=== PATIENT | male | born 2000 | race Caucasian/White ===

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

== ENCOUNTER 2021-02-20 15:09 | Outpatient (CLI) | payer OTHER, SELFPAY ==
--- NOTE | 2021-02-20 15:15 | MR_ITS ---
WS: [id number] MRI LEFT KNEE HISTORY: S82.153A - Displaced fracture of unspecified tibial tubercle... COMPARISON: Radiographs 02/04/2021 Anterior cruciate ligament: Intact. There is a very small amount of fluid in the proximal ligament bu t no full-thickness or high-grade tear. Posterior cruciate ligament: Intact. Medial collateral ligament: Intact. Posterior lateral corner structures: Intact. Medial menisci: Intact. Normal signal, size and shape. Lateral meniscus: Intact. Normal signal, size and shape. Extensor mechanism: Distal quadriceps tendon and patellar tendons are intact. Fluid and soft tissue: Large suprapatellar joint effusion. There is additional edema extending into t he infrapatellar fat pad. No Gomez's cyst. Osseous and articular structures: Patellofemoral compartment: Increased T2 signal in the inferior medial patella. There is a lucency on the proton density sequences consistent with a fracture. Fracture is not visualized by radiograph. N o displacement. There is loss of the normal cortex over the inferior surface of the patella. There is also involvement of the significant portion of the cartilage over the medial patellar facet at the s ite of the trauma. Mild lateral subluxation of patella. Increased signal extends through the medial p atellar retinaculum at the attachment to the patella consistent with a tear. Medial compartment: Normal. Lateral compartment: Moderate amount of marrow edema in the lateral femoral condyle. There is also os teochondral defect in the cartilage measuring 6 mm along the joint surface of the femoral condyle. Co rtical and cartilage injury along the joint surface and medial condyle. Trabecular and cortical injur y. Within the fluid adjacent to the femoral condyle is a 9 mm defect which may be a loose body associ ated with the cartilage and cortical injury of the femoral condyle. MR/MR knee LT wo con* [id number] IMPRESSION: 1. Constellation of findings are most likely due to transient dislocation of t he patella laterally. 2. Marrow edema with nondisplaced fracture in the inferior medial patella with a tear of the medial patellar retinaculum. 3. Marrow edema lateral femoral condyle with osteochondral injury and cortical injury. Possible adjacent loose body measuring 9 mm. 4. Large suprapatellar joint effusion. 5. Additional significant acute osteochondral injury involving a large portion of the medial patella.
== END 2021-02-20 15:10 | disposition home or self-care (01) ==
LOC: RADSHAW 15:11
PROVIDERS: Family Provider Nurse Practitioner; PCP Nurse Practitioner; Visit Provider Orthopaedic Surgery
DX: S82.153A Displaced fracture of unspecified tibial tuberosity, initial encounter for closed fracture (principal); R60.9 Edema, unspecified; M25.462 Effusion, left knee; X58.XXXA Exposure to other specified factors, initial encounter
CPT/HCPCS: 73721

== ENCOUNTER → 2021-03-16 14:03 | Outpatient (BNVA) | payer OTHER, SELFPAY | PROVIDERS: Family Provider Nurse Practitioner; PCP Nurse Practitioner; Visit Provider Orthopaedic Surgery | DX: M25.562 Pain in left knee (principal) | CPT/HCPCS: 73560; 73565 ==

== ENCOUNTER → 2021-04-27 14:21 | Outpatient (BNVA) | payer OTHER, SELFPAY | PROVIDERS: Family Provider Nurse Practitioner; PCP Nurse Practitioner; Visit Provider Orthopaedic Surgery | DX: S82.152D Displaced fracture of left tibial tuberosity, subsequent encounter for closed fracture with routine healing (principal); X58.XXXD Exposure to other specified factors, subsequent encounter | CPT/HCPCS: 73560; 73565 ==

== ENCOUNTER → 2021-09-27 09:28 | Outpatient (BNVA) | payer OTHER, SELFPAY | PROVIDERS: Family Provider Nurse Practitioner; PCP Nurse Practitioner; Visit Provider Nurse Practitioner Family | DX: S62.002A Unspecified fracture of navicular [scaphoid] bone of left wrist, initial encounter for closed fracture (principal); S62.001A Unspecified fracture of navicular [scaphoid] bone of right wrist, initial encounter for closed fracture; W10.1XXA Fall (on)(from) sidewalk curb, initial encounter | CPT/HCPCS: 73110 ==

== ENCOUNTER 2021-09-27 11:40 | Emergency (ER) | payer OTHER, SELFPAY ==
[2021-09-27 12:13] VITALS: BP 137/84; PULSE 67; RESP 18; O2SAT 98; BMI 19.8
--- NOTE | 2021-09-27 12:23 | ED_ITS ---
HPI - Extremity Problem General: Chief complaint: Extremity Injury, Upper Stated complaint: BILATERAL WRIST INJURY:HAS XRAY SHOWING BROKE Time Seen by Provider: 09/27/21 12:19 History of Present Illness: HPI Narrative: Patient is a 21-year-old male comes to the ED with bilateral wrist pain. Patient says yesterday he jumped up onto a railing and then fell backwards approximately 3 feet in the air and landed on his outstretched arms and hands. He is now having pain in both wrists that he rates currently a 6 out of 10. X-rays were done in [place] today and he had bilateral wrist fractures. Denies any head trauma or loss of consciousness or headache. Associated symptoms: Deny chest pain, fever(s) or rash Review of Systems Const: Denies: fever(s), chills or fatigue Eyes: Denies: change in vision or eye discomfort ENMT: Denies: throat pain, odynophagia, nasal discharge or nasal congestion Card: Denies: chest pain, palpitations, edema, swelling of feet/ankles, dyspnea on exertion or orthopnea Resp: Denies: dyspnea, productive cough or non-productive cough GI: Denies: abdominal pain, nausea, vomiting, diarrhea, constipation or hematochezia : Denies: flank pain, difficulty urinating, dysuria or hematuria Musc: Reports: extremity pain (Bilateral wrist pain); Denies: neck pain, back pain or extremity swelling Skin/Breast: Denies: rash or new lesions Neuro: Denies: headache(s), numbness in extremities or weakness in extremities [facility] ED PFSH: Medical History 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 Surgical History History of adenoidectomy Family History Other Diabetes Hypertension Denies family history of Dementia Cancer Stroke Social History Smoking and tobacco status: never smoked Second hand smoke exposure: No Smoking risk assessment/counseling performed?: No Alcohol intake: never Desire information about alcohol rehabilitation?: No Counseling given: No Desire information about substance/drug rehabilitation?: No Counseling given: No Adopted: No Caregiver/support person: No Lives independently: No Household members: family Housing: House Marital status: Single service: No Current occupational status: employed and student Current gender identity: Male Physical Exam Const: COMMON NORMALS: no acute distress, patient oriented x3, healthy appearing and alert GENERAL APPEARANCE: cooperative and comfortable HENMT: COMMON NORMALS: normocephalic HEAD & SCALP: normocephalic MOUTH: Normal oral and palatal mucosa present THROAT: posterior oropharynx normal and uvula midline Neck/C-Spine: COMMON NORMALS: supple GENERAL: Yes normal visual inspection Resp: COMMON NORMALS: normal respiratory effort, No retractions, No use of accessory muscles and clear to auscultation bilaterally AUSCULTATION: clear to auscultation bilaterally Cardio: COMMON NORMALS: regular rate, regular rhythm, S1 normal heart sound present, S2 normal heart sound present, No gallops present (Cardio), No clicks present (Cardio), No murmurs present (Cardio) and Peripheral pulses 2+ throughout RATE: regular rate RHYTHM: regular rhythm HEART SOUNDS: S1 normal heart sound present and S2 normal heart sound present PERIPHERAL PULSES: Peripheral pulses 2+ throughout GI: COMMON NORMALS: Normal to inspection, nondistended, normoactive bowel sounds present, Soft to palpation, non-tender and no masses PALPATION: Yes Soft to palpation : COMMON NORMALS: Yes no CVA tenderness BLADDER/KIDNEY EXAM: Yes no CVA tenderness Back/Pelvis: COMMON NORMALS: no CVA tenderness Extremity: NARRATIVE EXTREMITY EXAM: Bilateral wrist?pain with range of motion. No visible deformity seen. Tenderness to palpation over radius. Neurovascular intact bilaterally. GENERAL: Yes normal exam except as noted Neuro: COMMON NORMALS: patient oriented x3 and moves all extremities SENSORIUM/ORIENTATION: Yes alert Skin: GENERAL SKIN EXAM: dry skin Course Vital Signs: Vital signs: Vital Signs Pulse Rate 59 L 09/27/21 14:09 Respiratory Rate 14 09/27/21 14:09 Blood Pressure 137/84 09/27/21 12:13 Pulse Oximetry 99 09/27/21 14:09 MDM - Extremity (Nontraumatic) MDM Narrative: Medical decision making narrative: Patient is a 21-year-old male who comes to the ED with bilateral wrist fractures. Patient was standing on a rail that was about 3 feet near and he fell backwards landing on his arms outstretched. Denies bilateral wrist pain. Denies any head trauma, loss of consciousness or headache. Patient was seen at [facility] in [place] and they performed x-rays on patient's left and right wrist and x-ray showed scaphoid fractures in both wrists. Patient was sent here to be evaluated and to have his wrists splinted. Here in the ED patient has some tenderness to his wrist bilaterally upon palpation. He is neurovascular intact. I reviewed the wrist x-ray images and the reports. Patient was diagnosed with closed fracture of scaphoid of both wrist. Both wrists were put in a thumb spica splint. I placed an order with case management for patient to be referred to orthopedics. Patient has been seen by Dr. Moore previously and would like to be referred to Dr. Moore in the orthopedic office. Patient told to keep splint on and dry. Return to ED precautions given. Patient understood and agreed with plan. Imaging Data^: Xray Ortho: Attestation: I personally reviewed and interpreted this imaging study as follows: Radiologist's impression: [address] [address]MMwq ReportSigned Patient: Andrzej Brothers #: [id number]: 2000Acct#:[id number]/Sex: 21 / MADM Date: 09/27/21Loc: THARoom/Bed:Attending Dr: Nidia Lindsey MEDICAL HEALTH RESEARCHER-C Ordering Provider/Ordering MD: Nidia Lindsey NP Date of Service: 09/27/21 Procedure(s): XR wrist RT min 3V* [id number] Accession Number(s): [id number] Report Number: [id number] PROCEDURE INFORMATION: Exam: XR Right Wrist Exam date and time: 09/27/2021 9:28 AM Age: 21 years old Clinical indication: Pain and injury or trauma; Fall; Blunt trauma (contusions or hematomas); Wrist; Bilateral; Additional info: Wrist pain TECHNIQUE: Imaging protocol: XR Right wrist. Views: 3 or more views. COMPARISON: No relevant prior studies available. FINDINGS: Bones/joints: There is an acute transverse fracture through the waist of the scaphoid bone with about 2 mm of distraction. Soft tissues: Normal. XR/XR wrist RT min 3V* [id number] IMPRESSION: Mildly distracted transverse fracture through the waist of the scaphoid bone. Dictated By:Marcella Frias By:Marcella Frias Date/Time:09/27/21/ 7 [facility] [place], [place] [address]LWfo ReportSigned Patient: Andrzej Brothers #: [id number]: 2000Acct#:[id number]/Sex: 21 / MADM Date: 09/27/21Loc: THARoom/Bed:Attending Dr: Nidia Lindsey MEDICAL HEALTH RESEARCHER-C Ordering Provider/Ordering MD: Nidia Lindsey NP Date of Service: 09/27/21 Procedure(s): XR wrist LT min 3V* [id number] Accession Number(s): [id number] Report Number: [id number] PROCEDURE INFORMATION: Exam: XR Left Wrist Exam date and time: 09/27/2021 9:28 AM Age: 21 years old Clinical indication: Pain and injury or trauma; Fall; Blunt trauma (contusions or hematomas); Wrist; Bilateral; Additional info: Wrist pain TECHNIQUE: Imaging protocol: XR Left wrist. Views: 3 or more views. COMPARISON: CR XR knees AP WB w LT lmt ORTH 04/27/2021 2:29 PM FINDINGS: Bones/joints: There is a transverse acute nondisplaced fracture through the waist of the scaphoid bone. Soft tissues: Normal. XR/XR wrist LT min 3V* [id number] IMPRESSION: Transverse nondisplaced fracture through the waist of the scaphoid bone. Dictated By:Roula Friased By:Marcella Frias Date/Time:09/27/21/ 7 Discharge Plan Discharge Patient Disposition: Home Clinical Impression: Closed fracture of scaphoid of both wrists Qualifiers: Encounter type: initial encounter Qualified Code(s): S62.001A - Unspecified fracture of navicular [scaphoid] bone of right wrist, initial encounter for closed fracture Condition: Stable Prescriptions: No Action permethrin [Elimite] 5 % cream 1 applic topical Q14D Qty: 60 RF: 0 mupirocin 2 % ointment 1 applic topical BID Qty: 22 RF: 0 Discharge Orders: Discharge ED (Routine); Ordered 09/27/21 Ordered By: Jame Moore Referrals: Jan Eaton FNP-C [Primary Care Provider] - Discharge Diet: Regular Discharge Activity: Limit activity as instructed Patient Instructions: Wrist Fracture in Adults (ED), Scaphoid Fracture (ED) Activity Restrictions/Additional Instructions: Follow-up with medical provider as directed. Case management should be contacting you next several days set up an appointment with the orthopedic. Keep splint on and dry and limit activity both until cleared by Ortho. You can take [id number] ibuprofen up to 800 mg every 8 hours to help with pain. You can also take Tylenol in between your ibuprofen doses anywhere from 500- 1,000mg per dose 3 times a day. return to the ER or your medical provider if condition worsens. Please read and understand discharge instructions. Thank you for choosing [facility] for your healthcare needs today. Please realize this is an emergency room and that we are providing you with a medical screening exam and this may not be complete and all inclusive of all the testing and or work up that you may need to determine your ailment or severity of your illness. It is very important that you follow up as instructed or that you return to the Emergency Department should you have concerns or if your condition changes or worsens in any way. Stand Alone Forms: Work/School Release Coding Level of Care Code ED Front Desk Officer for Lawanda Fwsegundo Exam Comprehensive
[2021-09-27] MEDS: HYDROcodone-acetaminophen 5-325 mg Tablet 1 TAB PO (12:51)
[2021-09-27 14:09] VITALS: PULSE 59; RESP 14; O2SAT 99
--- NOTE | 2021-09-28 10:32 | DCPLANNER ---
cook manager had message to schedule a follow up appointment for patient with ortho. cook manager called the ortho clinic, spoke with Fiona, gave clinic patients information. cook manager was told that patients information would be printed and reviewed. Clinic will call patient with appointment information.
--- NOTE | 2021-09-29 08:19 | DCPLANNER ---
Patient has a follow up appointment scheduled for Sunday, October 03, [address] at 8:[address] De La Cruz at [facility]. Clinic will call patient with appointment information.
--- NOTE | 2021-10-06 11:35 | DCPLANNER ---
Patient had a follow up appointment scheduled for 10.03.21 with ortho - patient did attend appointment.
== END 2021-09-27 13:56 | disposition home or self-care (01) ==
PROVIDERS: Emergency Provider Physician Assistant; PCP Nurse Practitioner
DX: S62.001A Unspecified fracture of navicular [scaphoid] bone of right wrist, initial encounter for closed fracture (principal); S62.002A Unspecified fracture of navicular [scaphoid] bone of left wrist, initial encounter for closed fracture; W17.89XA Other fall from one level to another, initial encounter
CPT/HCPCS: 29125; 99283

== ENCOUNTER 2022-12-23 05:09 | Emergency (ER) | payer OTHER, SELFPAY ==
[2022-12-23 05:17] VITALS: BP 97/61; PULSE 80; RESP 18; TEMP 36.6; O2SAT 98; BMI 19.8
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
[2022-12-23 05:51] VITALS: PULSE 94; RESP 16; O2SAT 94
[2022-12-23 06:34] VITALS: BP 104/61; PULSE 79; RESP 14; O2SAT 93
[2022-12-23 06:35] VITALS: BP 107/61; PULSE 73; RESP 14; O2SAT 93
--- NOTE | 2022-12-25 16:10 | DCPLANNER ---
TCM called patient due to no primary care physician - patient stated that he has seen Jan Eaton in the past, but been a while. Patient does not want to reestablish at this time.
== END 2022-12-23 06:34 | disposition home or self-care (01) ==
PROVIDERS: Emergency Provider Emergency Medicine
DX: S09.8XXA Other specified injuries of head, initial encounter (principal); F17.210 Nicotine dependence, cigarettes, uncomplicated; V89.2XXA Person injured in unspecified motor-vehicle accident, traffic, initial encounter
CPT/HCPCS: 70450; 71045; 99284

== ENCOUNTER 2024-04-07 06:00 | Outpatient (RCR) | payer OTHER, SELFPAY | END 2024-04-12 23:59 | disposition home or self-care (01) | LOC: SOT 06:00 | PROVIDERS: PCP Nurse Practitioner Family; Visit Provider Orthopaedic Surgery | DX: Z47.81 Encounter for orthopedic aftercare following surgical amputation (principal); Z89.022 Acquired absence of left finger(s) | CPT/HCPCS: 97110; 97165; 97530 ==

== ENCOUNTER 2024-07-15 08:47 | Emergency (ER) | payer OTHER, SELFPAY ==
--- NOTE | 2024-07-15 08:48 | ECG_ITS ---
[facility] Test Date: 2024-07-15 Pat Name: Andrzej Brothers Department: Room: Gender: Male Traffic Court Magistrate: : 2000 Requested By: Lashon Houston Order Number: [id number] Sulema MD: Yaritza King M.D. Measurements Intervals Baxter Rate: 74 P: 78 IA: 143 QRS: 94 QRSD: 109 T: 70 QT: 355 QTc: 395 Interpretive Statements SINUS RHYTHM BORDERLINE RIGHT AXIS DEVIATION [QRS AXIS > 90] No previous ECG available for comparison Electronically Signed On 07-15-2024 23:34:52 CDT by Yaritza King M.D. [id number]
--- NOTE | 2024-07-15 08:48 | XR_ITS ---
WS: [id number] Exam: XR chest 1V portable [id number] Date/Time of Exam: 07/15/2024 8:56 AM Reason For Exam: cp Comparison 12/23/2022. Lungs are clear and fully inflated. Normal cardiomediastinal silhouette. Unremarkable bony elements. Mild dextroscoliosis at the thoracolumbar junction. XR/XR chest 1V portable [id number] IMPRESSION: 1. Negative chest.
--- NOTE | 2024-07-15 08:52 | ED_ITS ---
HPI - Chest Pain 2 General: Chief Complaint: Chest Pain Stated Complaint: chest pain Time Seen by Provider: 07/15/24 08:49 Source: patient Mode of arrival: ambulatory Limitations: no limitations History of Present Illness: 24-year-old male states having a sharp p ain left side of his chest that began this morning. He states it seems to be worse with movement and with inspiration. He denies any vomiting denies any shortness of breath denies any fever Associated symptoms: Deny abdominal pain, dyspnea, fever(s), nausea or vomiting Related Data Home Medications Medication Instructions Recorded Confirmed No Known Home Medications 07/15/24 07/15/24 Allergies Allergy/AdvReac Type Severity Reaction Status Date / Time No Known Allergies Allergy Verified 07/15/24 09:03 Review of Systems 2 Const: Denies: fever(s), chills, body aches or change in appetite ENMT: Denies: throat pain or dental pain Card: Reports: chest pain Resp: Denies: dyspnea GI: Denies: abdominal pain, nausea, vomiting or diarrhea Musc: Denies: neck pain or back pain Skin/Breast: Denies: rash Neuro: Denies: headache(s) PFSH ED 2 PFSH: Medical History 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 Surgical History History of adenoidectomy Family History Other Diabetes Hypertension Denies family history of Dementia Cancer Stroke Social History Smoking and tobacco/nicotine status: current every day tobacco/nicotine user (VAPES) Second hand smoke exposure: No Alcohol intake: never Substance/Drug Use: never Adopted: No Caregiver/support person: No Lives independently: No Household members: family Housing: House Marital status: Single service: No Current occupational status: employed and student Do you think of yourself as: Straight/Heterosexual Current gender identity: Male Physical Exam 2 Const: COMMON NORMALS: no acute distress, patient oriented x3 and healthy appearing HENMT: COMMON NORMALS: normocephalic and atraumatic HEAD & SCALP: n ormocephalic and atraumatic Eye: COMMON NORMALS: conjunctivae normal CONJUNCTIVA: Yes conjunctivae normal Neck/C-Spine: COMMON NORMALS: full ROM and supple Chest: COMMONS NORMALS: normal inspection of the chest and normal palpation of entire chest wall Resp: COMMON NORMALS: normal respiratory effort, No retractions, No use of accessory muscles and clear to auscultation bilaterally AUSCULTATION: clear to auscultation bilaterally Cardio: COMMON NORMALS: regular rate, regular rhythm and No murmurs present (Cardio) RATE: regular rate RHYTHM: regular rhythm Extremity: COMMON NORMALS: normal to inspection and full ROM Neuro: COMMON NORMALS: patient oriented x3, moves all extremities and no focal motor deficits Psych: COMMON NORMALS: mental status grossly normal, Normal thought process present and cooperative THOUGHT PROCESS: Normal thought process present Skin: COMMON NORMALS: no rashes or lesions noted and no wounds GENERAL SKIN EXAM: no rashes or lesions noted Course 2 Vital Signs: Vital signs: Vital Signs Temperature 98.3 F 07/15/24 08:58 Pulse Rate 76 07/15/24 10:30 Respiratory Rate 18 07/15/24 10:30 Blood Pressure 127/76 07/15/24 10:30 Pulse Oximetry 100 07/15/24 10:30 Oxygen Delivery Me thod Room Air 07/15/24 08:58 MDM - Chest Pain Medical Decision Making Patient presents here with chest pain is atypical in nature troponins EKG x-ray here are normal D-dimers negative he has no signs of pulmonary embolism or aortic dissection he feels improved we will place him on anti-inflammatories he is to follow-up with PCP return if worsening. Medical Records I reviewed the patient's medical records. Lab Data I reviewed the patient's lab results. 07/15/24 08:56 07/15/24 08:56 Radiology Impressions Chest X-Ray 07/15/24 08:48 IMPRESSION: 1. Negative chest. Laboratory Results WBC 6.19 10^3/uL (3.29-11.43) 07/15/24 08:56 RBC 5.42 10^6/uL (3.85-5.65) 07/15/24 08:56 Hgb 16.20 g/dL (11.27-16.99) 07/15/24 08:56 Hct 46.6 % (37-53) 07/15/24 08:56 MCV 86.0 fl (82-101) 07/15/24 08:56 MCH 29.9 pg (27-33) 07/15/24 08:56 MCHC 34.8 g/dL (30-55) 07/15/24 08:56 RDW 12.2 % (12.1-15.1) 07/15/24 08:56 Plt Count 241 10^3/cmm (157-399) 07/15/24 08:56 MPV 9.9 fL (7.4-10.4) 07/15/24 08:56 Neut % (Auto) 49.7 % 07/15/24 08:56 Lymph % (Auto) 35.5 % 07/15/24 08:56 [place] % (Auto) 12.1 % 07/15/24 08:56 Eos % (Auto) 1.6 % 07/15/24 08:56 Baso % (Auto) 0.6 % 07/15/24 08:56 Neut # (Auto) 3.07 10^3/uL (1.8-7.7) 07/15/24 08:56 Lymph # (Auto) 2.2 10^3/uL (0.8-4.8) 07/15/24 08:56 [place] # (Auto) 0.8 10^3/uL (0.2-0.9) 07/15/24 08:56 Eos # (Auto) 0.1 10^3/uL (0.0-0.8) 07/15/24 08:56 Baso # (Auto) 0.0 10^3/uL (0.0-0.1) 07/15/24 08:56 Nucleated RBC % (auto) 0 % 07/15/24 08:56 Nucleated RBCs # 0.0 /100WBC 07/15/24 08:56 D-Dimer <= 0.27 ug/mLFEU (0-0.59) 07/15/24 08:56 Sodium 140 mmol/L (136-145) 07/15/24 08:56 Potassium 3.9 mmol/L (3.5-5.1) 07/15/24 08:56 Chloride 102 mmol/L (98-107) 07/15/24 08:56 Carbon Dioxide 25 mmol/L (22-29) 07/15/24 08:56 Anion Gap 16.9 (5-19) 07/15/24 08:56 BUN 20 mg/dL (6-20) 07/15/24 08:56 Creatinine 0.8 mg/dL (0.7-1.2) 07/15/24 08:56 GFR Calculation 119.8 mL/min (90-130) 07/15/24 08:56 Glucose 108 mg/dL (65-115) 07/15/24 08:56 Calculated Osmolality 293 mOsm/kg (285-295) 07/15/24 08:56 Calcium 9.7 mg/dL (8.5-10.5) 07/15/24 08:56 Total Bilirubin 2.3 mg/dL (0.15-1.2) H 07/15/24 08:56 AST 14 U/L (0-40) 07/15/24 08:56 ALT 15 U/L (0-41) 07/15/24 08:56 Alkaline Phosphatase 85 U/L (40-130) 07/15/24 08:56 Troponin T Baseline < 6 ng/L (0-15) 07/15/24 08:56 Troponin T 120 Minute 6.00 ng/L (0-15) 07/15/24 10:20 Delta Troponin T 0.23047 ABS# (0-10) 07/15/24 10:20 Total Protein 7.2 g/dL (6.6-8.7) 07/15/24 08:56 Albumin 5.0 g/dL (3.5-5.2) 07/15/24 08:56 Globulin 2.2 g/dL (1.3-4.6) 07/15/24 08:56 Lipase 21 U/L (13-60) 07/15/24 08:56 All radiology interpretation(s) finalized by discharge EKG Data EKG 1: I personally reviewed and interpreted this EKG as follows: EKG interpretation date: 07/15/24 EKG interpretation time: 08:47 Interpretation: nsr hr [address] elevation qrs 109 qtc 382 Discharge Plan Discharge Patient Disposition: Home Clinical Impression: Atypical chest pain Condition: Stable Prescriptions: No Action No Known Home Medications Discharge Orders: Discharge ED (Routine); Ordered 07/15/24 Ordered By: Lashon Houston Referrals: Nidia Lindsey NP [Primary Care Provider] - 4-7 days Discharge Diet: Advance as tolerated Discharge Activity: Resume usual activity Patient Instructions: Chest Pain (ED) Coding Level of Care Code ED Manual Plate Filler for Lawanda Reese
[2024-07-15 08:58] VITALS: BP 127/76; PULSE 83; RESP 14; TEMP 36.8; O2SAT 100; BMI 18.7
[2024-07-15 09:01] LABS: Basophils % 0.6 %; Eosinophils # 0.1 10^3/uL (0.0-0.8); Eosinophils % 1.6 %; Hematocrit 46.6 % (37-53); Lymphocytes # 2.2 10^3/uL (0.8-4.8); Lymphocytes % 35.5 %; Mean Corpuscular HGB Conc 34.8 g/dL (30-55); Mean Corpuscular Hemoglobin 29.9 pg (27-33); Mean Platelet Volume 9.9 fL (7.4-10.4); Monocytes # 0.8 10^3/uL (0.2-0.9); Monocytes % 12.1 %; Neutrophils # 3.07 10^3/uL (1.8-7.7); Neutrophils % 49.7 %; Nucleated Red Blood Cells % 0 %; Platelet Count 241 10^3/cmm (157-399); Red Blood Count 5.42 10^6/uL (3.85-5.65); Red Cell Distribution Width 12.2 % (12.1-15.1); White Blood Count 6.19 10^3/uL (3.29-11.43)
[2024-07-15 09:24] LABS: Troponin(5th) Baseline < 6 ng/L (0-15)
[2024-07-15 09:29] LABS: Alanine Aminotransferase 15 U/L (0-41); Alkaline Phosphatase 85 U/L (40-130); Anion Gap 16.9 (5-19); Aspartate Amino Transferase 14 U/L (0-40); Blood Urea Nitrogen 20 mg/dL (6-20); Calcium 9.7 mg/dL (8.5-10.5); Carbon Dioxide 25 mmol/L (22-29); Chloride 102 mmol/L (98-107); Creatinine Clr Calc Pharmacy 138.2042; Globulin 2.2 g/dL (1.3-4.6); Glomerular Filtration Rate 119.8 mL/min (90-130); Glucose 108 mg/dL (65-115); Lipase 21 U/L (13-60); Osmolality Calculated 293 mOsm/kg (285-295); Potassium 3.9 mmol/L (3.5-5.1); Sodium 140 mmol/L (136-145); Total Bilirubin 2.3 mg/dL (0.15-1.2); Total Protein 7.2 g/dL (6.6-8.7)
[2024-07-15] MEDS: ketorolac 30 mg/mL INJ IVP (09:44)
[2024-07-15 10:21] LABS: D Dimer <= 0.27 ug/mLFEU (0-0.59)
[2024-07-15 10:30] VITALS: BP 127/76; PULSE 76; RESP 18; O2SAT 100
--- NOTE | 2024-07-15 10:48 | ECG_ITS ---
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 Measurements Intervals [place] Rate: 57 P: 59 VT: 137 QRS: 94 QRSD: 102 T: 75 QT: 378 QTc: 369 Interpretive Statements SINUS BRADYCARDIA BORDERLINE RIGHT AXIS DEVIATION [QRS AXIS > 90] Compared to ECG 07/15/2024 08:47:47 Sinus rhythm no longer present Electronically Signed On 07-15-2024 23:43:28 CDT by Yaritza King M.D. [id number]
[2024-07-15 10:49] LABS: Troponin 5 2HR Delta 0.00001 ABS# (0-10)
[2024-07-15 11:00] VITALS: BP 118/67; PULSE 66; RESP 22; O2SAT 100
[2024-07-15 11:29] VITALS: BP 119/70; PULSE 63; O2SAT 100
== END 2024-07-15 12:30 | disposition home or self-care (01) ==
PROVIDERS: Emergency Provider Emergency Medicine; PCP Nurse Practitioner Family
DX: R07.89 Other chest pain (principal); F17.290 Nicotine dependence, other tobacco product, uncomplicated
CPT/HCPCS: 36415; 71045; 80053; 83690; 84484; 85025; 85378; 93005; 96374; 99285; J1885

== ENCOUNTER 2025-01-30 10:23 | Emergency (ER) | payer OTHER, SELFPAY ==
[2025-01-30 10:51] VITALS: BP 111/72; PULSE 70; RESP 18; TEMP 36.8; O2SAT 97; BMI 19.9
[2025-01-30 10:55] VITALS: RESP 18; O2SAT 98
--- NOTE | 2025-01-30 11:07 | ED_ITS ---
HPI - COVID General: Chief Complaint: COVID symptoms Stated Complaint: sore throat and boisy aches Time Seen by Provider: 01/30/25 10:33 History of Present Illness: 24-year-old male presents to the ER jenna f complaint of generalized malaise fatigue with muscle aches. Patient reports cough congestion sore throat enlarged glands he reports that is around several sick ill contacts denies any fevers or chills reports no GI symptoms patient presents to the ER for further assessment and management. COVID 19 common symptoms: positive chills and fatigue; negative fever(s), productive cough, dyspnea, headache(s), nausea or vomiting COVID 19 other sytmptoms: negative chest pain COVID Results: SARS-CoV-2 Ag (Rapid) Negative (Negative) 01/14/24 10:47 12/07 SARS-CoV-2 (PCR) Negative (Negative) 01/30/25 10:55 01/30/25 Related Data Previous Rx's ?Medication ?Instructions ?Recorded ibuprofen 600 mg tablet (IBU) 600 mg PO TID PRN pain, moderate 01/30/25 #20 tabs prednisone 10 mg tablets in a dose 10 mg PO DIRECTE D #21 ea 01/30/25 pack Allergies Allergy/AdvReac Type Severity Reaction Status Date / Time No Known Allergies Allergy Verified 07/15/24 09:03 Review of Systems General: Reports: 10 or more systems reviewed and unremarkable except in HPI and below Const: Reports: chills, fatigue, malaise and other (Myalgias and arthralgias); Denies: fever(s) Eyes: Denies: change in vision or blurry vision ENMT: Reports: hoarseness and post nasal drip Card: Denies: chest pain or palpitations Resp: Denies: dyspnea or productive cough GI: Denies: abdominal pain, nausea or vomiting : Denies: flank pain Musc: Denies: extremity pain or extremity swelling Skin/Breast: Denies: rash or pruritus Neuro: Denies: headache(s) Psych: Denies: anxiety or depression Patricio/Lymph: Denies: easy bleeding All/Imm: Denies: urticaria, throat swelling or facial swelling PFSH ED PFSH: Medical History 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 Surgical History History of adenoidectomy Family History Other Diabetes Hypertension Denies family history of Dementia Cancer Stroke Social History Smoking and tobacco/nicotine status: current every day tobacco/nicotine user Second hand smoke exposure: No Alcohol intake: never Substance/Drug Use: never Adopted: No Caregiver/support person: No Lives independently: No Household members: family Housing: House Marital status: Single service: No Current occupational status: employed and student Do you think of yourself as: Straight/Heterosexual Current gender identity: Male Physical Exam Const: COMMON NORMALS: no acute distress, patient oriented x3 and healthy appearing HENMT: COMMON NORMALS: normocephalic, atraumatic and moist oral mucous membranes; oropharynx not normal (Mild pharyngeal erythema tonsillomegaly appreciated no obvious exudates not) HEAD & SCALP: normocephalic and atraumatic Eye: COMMON NORMALS: Equal, round and reactive pupils present and EOMs intact bilaterally PUPIL: Yes Equal, round and reactive pupils present Neck/C-Spine: COMMON NORMALS: full ROM, supple and no JVD Lymph: LYMPHATIC: no lymphadenopathy noted Chest: COMMONS NORMALS: normal inspection of the chest and normal palpation of entire chest wall Resp: COMMON NORMALS: normal respiratory effort, No retractions and clear to auscultation bilaterally EFFORT & INSPECTION: Yes able to speak in complete sentences and Yes symmetric chest movement AUSCULTATION: clear to auscultation bilaterally Cardio: COMMON NORMALS: no JVD, regular rate and regular rhythm RATE: regular rate RHYTHM: regular rhythm GI: COMMON NORMALS: Normal to inspection, nondistended, normoactive bowel sounds present, Soft to palpation and non-tender INSPECTION: Yes normal to inspection PALPATION: Yes Soft to palpation : COMMON NORMALS: Yes no CVA tenderness BLADDER/KIDNEY EXAM: Yes no CVA tenderness Back/Pelvis: COMMON NORMALS: no CVA tenderness Extremity: COMMON NORMALS: normal to inspection and full ROM Neuro: COMMON NORMALS: patient oriented x3, CN's II-XII intact bilaterally, moves all extremities and no focal motor deficits Psych: COMMON NORMALS: mental status grossly normal, Normal thought process present, cooperative and normal affect THOUGHT PROCESS: Normal thought process present Skin: COMMON NORMALS: no rashes or lesions noted GENERAL SKIN EXAM: no rashes or lesions noted Course Vital Signs: Vital signs: Vital Signs Temperature 98.2 F 01/30/25 10:51 Pulse Rate 70 01/30/25 10:51 Respiratory Rate 18 01/30/25 10:55 Blood Pressure 111/72 01/30/25 10:51 Pulse Oximetry 98 01/30/25 10:55 Oxygen Delivery Me thod Room Air 01/30/25 10:55 MDM - COVID Medical Decision Making Due to patient's symptoms and condition swabs will be obtained patient will be offered Toradol will continue to follow patient appears to be suffering from upper respiratory tract infection most likely viral induced. Patient's swabs came back unremarkable patient was placed into a steroid taper as well as some Toradol for his breakthrough discomfort advised further follow- up primary care in 3 to 5 days in which to return the interim if any of his symptoms persist or worse. Lab Data Laboratory Results Influenza A (PCR) Negative (Negative) 01/30/25 10:55 Influenza Type B (PCR) Negative (Negative) 01/30/25 10:55 RSV (PCR) Negative (Negative) 01/30/25 10:55 SARS-CoV-2 (PCR) Negative (Negative) 01/30/25 10:55 SARS-CoV-2 Ag (Rapid) Negative (Negative) 01/14/24 10:47 04/0 12/07 SARS-CoV-2 (PCR) Negative (Negative) 01/30/25 10:55 01/30/25 All radiology interpretation(s) finalized by discharge Discharge Plan Discharge Patient Disposition: Home Clinical Impression: Acute viral pharyngitis URI (upper respiratory infection) Qualifiers: URI type: unspecified viral URI Qualified Code(s): J06.9 - Acute upper respiratory infection, unspecified Condition: Stable Prescriptions: New prednisone 10 mg tablets,dose pack 10 mg PO DIRECTED Qty: 21 0RF Rx Instructions: see taper instructions ibuprofen [IBU] 600 mg tablet 600 mg PO TID PRN (Reason: pain, moderate) Qty: 20 0RF Discharge Orders: Discharge ED (Routine); Ordered 01/30/25 Ordered By: Kulwant Amanda Referrals: Sharon Thomas MD [Primary Care Provider] - 4-7 days Discharge Diet: Advance as tolerated Discharge Activity: Increase activity as tolerated Patient Instructions: Pharyngitis (ED), Upper Respiratory Infection (ED) Activity Restrictions/Additional Instructions: Take medications as prescribed please further follow-up primary care in 3 to 5 days and was to return the interim if any of your symptoms persist or worse Print Language: Frisian Coding Level of Care Code ED Storage Management Architect for Lawanda Reese
[2025-01-30 11:40] LABS: Influenza A NEGATIVE (Negative); Influenza B NEGATIVE (Negative); Respiratory Syncytial Virus Ce NEGATIVE (Negative); SARS-CoV-2 PCR NEGATIVE (Negative)
[2025-01-30] MEDS: ketorolac 60 mg/2 mL INJ IM (13:04)
[2025-01-30 13:24] VITALS: BP 108/65; PULSE 60; RESP 14; O2SAT 100
== END 2025-01-30 13:07 | disposition home or self-care (01) ==
PROVIDERS: Emergency Provider Emergency Medicine; PCP Family Medicine
DX: J02.8 Acute pharyngitis due to other specified organisms (principal); J06.9 Acute upper respiratory infection, unspecified; Z11.52 Encounter for screening for COVID-19; Z72.0 Tobacco use
CPT/HCPCS: 87637; 96372; 99284; J1885